=== PATIENT | female | born 1995 | race Caucasian/White ===

== ENCOUNTER 2019-03-17 12:58 | Emergency (ER) | payer SELFPAY ==
[2019-03-17] MEDS ORDERED: NORMAL SALINE 1000 ML 1,000 ML IV ONE (13:22)
--- NOTE | 2019-03-17 13:22 | ER Document Report ---
ED Medical Screen (RME) - General Chief Complaint: Nausea/Vomiting Stated Complaint: VOMITING Time Seen by Provider: 03/17/19 13:21 Mode of Arrival: Ambulatory Information source: Patient Notes: 23-year-old female presents to ED for complaint of headache x4 days with nausea and vomiting. She states she vomited twice today. She states she is unable to take pills because she cannot swallow pills. She has not taken anything for her headache. She states she does not know if she is or not and does not know when her last menstrual cycle was. She states she is probably . She is alert oriented respirations regular and unlabored speaking in full sentences walks with even steady gait. I have greeted and performed a rapid initial assessment of this patient. A comprehensive ED assessment and evaluation of the patient, analysis of test results and completion of medical decision making process will be conducted by an additional ED providers. TRAVEL OUTSIDE OF THE [place] IN LAST 30 DAYS: No - Related Data Allergies/Adverse Reactions: sulfamethoxazole [From Bactrim] Allergy (Verified 03/17/19 12:59) trimethoprim [From Bactrim] Allergy (Verified 03/17/19 12:59)
[2019-03-17] MEDS ORDERED: ACETAMINOPHEN SUSP 160 MG/5 ML ORAL SYRING PO ONE (13:23)
--- NOTE | 2019-03-17 13:48 | ER Document Report ---
HPI - HPI Patient complains to provider of: Concern about Time Seen by Provider: 03/17/19 13:21 Onset/Duration: Gradual Quality of pain: Achy Pain Level: 3 Context: Patient presents stating that she has had a headache for the past 4 days with nausea vomiting cough for 2 days and sore throat for 2 days. Patient states that she really would not like to have any testing performed other than a test as this is her main concern today. Patient denies any fever urinary symptoms vaginal bleeding or discharge. Patient is agreeable to have a test and rapid strep test performed. Associated Symptoms: Nonproductive cough, Headache, Nausea, Vomiting, Sore throat. denies: Chest pain, Productive cough, Fever Exacerbated by: Denies Relieved by: Denies Similar symptoms previously: No Recently seen / treated by doctor: No - ROS ROS below otherwise negative: Yes Systems Reviewed and Negative: Yes All other systems reviewed and negative - CONSTITUTIONAL Constitutional: DENIES: Fever - EENT EENT: REPORTS: Sore Throat - NEURO Neurology: REPORTS: Headache. DENIES: Weakness, Vision blurred, Dizzinesss / Vertigo - RESPIRATORY Respiratory: REPORTS: Coughing. DENIES: Trouble Breathing - GASTROINTESTINAL Gastrointestinal: REPORTS: Nausea, Patient vomiting. DENIES: Abdominal Pain, Diarrhea - URINARY Urinary: DENIES: Dysuria - REPRODUCTIVE LMP: 2 weeks ago positive test Reproductive: REPORTS: :. DENIES: Abnormal bleeding / discharge - MUSCULOSKELETAL Musculoskeletal: DENIES: Back Pain - DERM Skin Color: Normal Skin Problems: None Past Medical History - General Information source: Patient - Social History Smoking Status: Never Smoker Chew tobacco use (# tins/day): No Frequency of alcohol use: Social Drug Abuse: None Occupation: None Family History: Reviewed & Not Pertinent Patient has suicidal ideation: No Patient has homicidal ideation: No Neurological Medical History: Reports: Hx Migraine Surgical Hx: Negative Vertical Provider Document - CONSTITUTIONAL Agree With Documented VS: Yes Exam Limitations: No Limitations General Appearance: WD/WN, No Apparent Distress - INFECTION CONTROL TRAVEL OUTSIDE OF THE [place] IN LAST 30 DAYS: No - HEENT HEENT: Atraumatic, Normocephalic, Pharyngeal Tenderness. negative: Pharyngeal Exudate, Pharyngeal Erythema - NECK Neck: Normal Inspection, Supple, Other - No meningismus. negative: Lymphadenopathy-Left, Lymphadenopathy-Right - RESPIRATORY Respiratory: Breath Sounds Normal, No Respiratory Distress, Chest Non-Tender - CARDIOVASCULAR Cardiovascular: Regular Rate, Regular Rhythm, No Murmur. negative: Tachycardia - GI/ABDOMEN Gastrointestinal: Abdomen Soft, Abdomen Non-Tender, No Organomegaly, Normal Bowel Sounds. negative: Abdominal Rebound - BACK Back: Normal Inspection. negative: CVA Tenderness-Right, CVA Tenderness-Left - MUSCULOSKELETAL/EXTREMETIES Musculoskeletal/Extremeties: MAEW, FROM - NEURO Level of Consciousness: Awake, Alert, Appropriate Motor/Sensory: No Motor Deficit - DERM Integumentary: Warm, Dry, No Rash Course - Re-evaluation Re-evalutation: 03/17/19 14:33 She declines any testing at this time stating that she only wants to know if she is or not. Patient is agreeable to rapid strep test given her history of sore throat symptoms. - Vital Signs Vital signs: Temp Pulse Resp BP Pulse Ox 97.9 F 87 16 136/86 H 100 03/17/19 13:19 03/17/19 13:19 03/17/19 13:19 03/17/19 13:19 03/17/19 13:19 - Laboratory Laboratory results interpreted by me: 03/17/19 15:34 Labs- Entire Visit 03/17/19 03/17/19 13:25 14:32 Urine HCG, Qual POSITIVE H Group A Strep Rapid NEGATIVE Discharge - Discharge Clinical Impression: Sore throat, test positive Headache Qualifiers: Headache type: unspecified Headache chronicity pattern: unspecified pattern Intractability: not intractable Qualified Code(s): R51 - Headache Condition: Stable Disposition: HOME, SELF-CARE Instructions: Acetaminophen, Headache ([facility]), ([facility]), Sore Throat ([facility]) Additional Instructions: Return immediately for any new or worsening symptoms Followup with your primary care provider, call tomorrow to make a followup appointment Follow-up with an POLL[employer] CHEMIST to establish care [facility] - Follow up as needed [facility] [Provider Group] - Follow up as needed
[2019-03-17 15:54] VITALS: BP 106/61
== END 2019-03-17 15:54 | disposition home or self-care (01) ==
LOC: ER 12:58
DX: J02.9 Acute pharyngitis, unspecified (principal); R51 Headache; R11.2 Nausea with vomiting, unspecified; Z32.01 Encounter for pregnancy test, result positive
CPT/HCPCS: 81025; 87070; 87880; 99283